=== PATIENT | male | born 1960 | race Caucasian/White ===

== ENCOUNTER 2018-05-21 11:40 | Emergency (ER) | payer BC ==
[~2018-05-21 11:40] MED LIST: Sodium Chloride Irrig Solution 250 ML BOT ONE
[2018-05-21] MEDS ORDERED: Clindamycin 150 MG CAP ONE (12:08)
[2018-05-21] MEDS ORDERED: Triple Antibiotic Oint 1 GM Packet ONE (12:08)
[2018-05-21] MEDS ORDERED: Cephalexin 500 MG CAP ONE (12:08)
== END 2018-05-21 12:30 | disposition home or self-care (01) ==
LOC: MADERS 11:40
DX: L01.00 Impetigo, unspecified (principal)
CPT/HCPCS: 99282

== ENCOUNTER 2019-03-09 08:42 | Emergency (ER) | payer BC ==
[2019-03-09] MEDS ORDERED: predniSONE 20 MG TAB ONE (09:04)
== END 2019-03-09 10:16 | disposition home or self-care (01) ==
LOC: MADERS 08:42
DX: J45.901 Unspecified asthma with (acute) exacerbation (principal); Z79.51 Long term (current) use of inhaled steroids
CPT/HCPCS: 94640; 94760; J7512; J7620

== ENCOUNTER 2022-08-16 02:05 | Emergency (ER) | payer BC ==
[2022-08-16] MEDS ORDERED: Phenazopyridine HCl 95 MG TAB ONE ×2 (02:43→02:49)
[2022-08-16] MEDS ORDERED: Ketorolac Tromethamine 30 MG/ML VIAL ONE (04:07)
[2022-08-16 04:09] LABS: Bilirubin Negative (Negative); Blood, Urine Moderate (Negative); Clarity Clear (Clear); Glucose, Urine (Dipstick) Negative (Negative); Ketone, Urine Negative (Negative); Leukocyte Negative (Negative); Nitrite Positive (Negative); Protein, Urine (Dipstick) 30 mg/dL (Neg-Trace); Specific Gravity, Urine 1.025 (1.005-1.030); pH, Urine 5.5 (5.0-9.0)
[2022-08-16 04:12] LABS: RBC/HPF Greater than 50 HPF (0-3)
[2022-08-16 04:13] LABS: Bacteria/HPF Rare-Few HPF (None Seen)
[2022-08-16] MEDS ORDERED: Ciprofloxacin 500 MG TAB ONE (04:50)
== END 2022-08-16 05:00 | disposition home or self-care (01) ==
LOC: MADERS 02:05
DX: N39.0 Urinary tract infection, site not specified (principal); F17.210 Nicotine dependence, cigarettes, uncomplicated
CPT/HCPCS: 81003; 81015; 96372; 99284; J1885

== ENCOUNTER 2023-09-08 20:24 | Emergency (ER) | payer BC ==
[2023-09-08] MEDS ORDERED: Ipratropium/Albuterol 3 ML NEB ONE (20:35)
[2023-09-08] MEDS ORDERED: methylPREDNISolone Sod Succ/PF 125 MG/2 ML VIAL ONE (21:00)
== END 2023-09-08 21:22 | disposition home or self-care (01) ==
LOC: MADERS 20:24
DX: J45.901 Unspecified asthma with (acute) exacerbation (principal); Z87.891 Personal history of nicotine dependence; Z79.899 Other long term (current) drug therapy
CPT/HCPCS: 96372; J2930; J7620

== ENCOUNTER 2023-12-15 18:17 | Emergency (ER) | payer BC, SELFPAY ==
[2023-12-15] MEDS ORDERED: Dexamethasone 10 MG/ML VIAL ONE (18:55)
== END 2023-12-15 19:15 | disposition home or self-care (01) ==
LOC: MADERS 18:17
DX: J44.1 Chronic obstructive pulmonary disease with (acute) exacerbation (principal); Z87.891 Personal history of nicotine dependence
CPT/HCPCS: 96372; 99284; J1100

== ENCOUNTER 2024-01-21 05:15 | Emergency (ER) | payer SELFPAY ==
[2024-01-21] MEDS ORDERED: Ipratropium/Albuterol 3 ML NEB ONE ×2 (05:22→06:01)
[2024-01-21] MEDS ORDERED: methylPREDNISolone Sod Succ/PF 125 MG/2 ML VIAL ONE (06:02)
== END 2024-01-21 06:19 | disposition home or self-care (01) ==
LOC: MADERS 05:15
DX: J45.901 Unspecified asthma with (acute) exacerbation (principal); Z97.13 Presence of artificial right leg (complete) (partial); Z87.891 Personal history of nicotine dependence; Z79.899 Other long term (current) drug therapy
CPT/HCPCS: 96372; J2930; J7620